=== PATIENT | male | born 1980 | race Caucasian/White ===

== ENCOUNTER 2022-03-09 09:12 | Emergency (ER) | payer OTHER ==
[~2022-03-09] VITALS: Ht 180.3 cm; Wt 99.8 kg
--- NOTE | 2022-03-09 09:20 | NUR ---
To ER [facility] bib [employer] for medical clearance, c/o generalized body aches, nausea x 2 daysstates, "im withrawing from fentanyl", breathing even and non labored, [employer] at bedside, awaiting md orders
[2022-03-09] MEDS ORDERED: NALO4SPR BNOSTRILS (10:09)
--- NOTE | 2022-03-09 10:14 | NUR ---
Patient discharged to [facility] in stable condition. Written and verbal after care instructions given. Patient verbalizes understanding of instruction.
[2022-03-09 10:15] VITALS: BP 134/80
== END 2022-03-09 10:15 ==
LOC: ER 09:15
DX: F11.10 Opioid abuse, uncomplicated (principal); R11.0 Nausea; J45.909 Unspecified asthma, uncomplicated